=== PATIENT | female | born 1980 | race Caucasian/White ===

== ENCOUNTER 2017-02-06 04:31 | Emergency (ER) | payer SELFPAY ==
--- NOTE | 2017-02-06 04:48 | EDM.PDOC ---
ED HPI GENERAL MEDICAL PROBLEM - General Chief Complaint: Drug or Alcohol Abuse Stated Complaint: [facility] Time Seen by Provider: 02/06/17 04:36 Source of Information: Reports: Patient, EMS History Limitations: Reports: No Limitations - History of Present Illness INITIAL COMMENTS - FREE TEXT/NARRATIVE: The patient was brought in by EMS for a heroin overdose. She was at the [employer] [place] from [facility]. She injected some heroin and she stopped breathing. Her boyfriend put her in a cold shower. Police gave her 4mg of intranasal narcan and EMS started an IV and gave her 2mg of IV narcan. She is alert and breathing now. 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 She is not from around here and she was not aware that there was some bad heroin in town. She denies headache, chest pain, shortness of breath, abdominal pain, nausea or vomiting. She is very cold. Onset: Sudden Duration: Minutes: Severity: Moderate Improves with: Reports: None Worsens with: Reports: None Context: Reports: Activity (Injected heroin) Associated Symptoms: Reports: No Other Symptoms - Related Data Allergies Allergy/AdvReac Type Severity Reaction Status Date / Time No Known Allergies Allergy Verified 02/06/17 04:38 Home Meds: Home Meds . [No Known Home Meds] 02/06/17 [History] Past Medical History - Past Health History Medical/Surgical History: Denies Medical/Surgical History ED ROS GENERAL - Review of Systems Review Of Systems: See Below Constitutional: Reports: No Symptoms HEENT: Reports: No Symptoms Respiratory: Reports: No Symptoms Cardiovascular: Reports: No Symptoms Endocrine: Reports: No Symptoms GI/Abdominal: Reports: No Symptoms : Reports: No Symptoms Musculoskeletal: Reports: No Symptoms - Physical Exam Exam: See Below Exam Limited By: No Limitations General Appearance: Alert, No Apparent Distress Ears: Normal External Exam Nose: Normal Inspection Head Exam: Atraumatic, Normocephalic Neck: Normal Inspection Respiratory/Chest: No Respiratory Distress, Lungs Clear, Normal Breath Sounds Cardiovascular: Regular Rate, Rhythm, No Edema, No Murmur GI/Abdominal: Soft, Non-Tender, No Organomegaly, No Mass Neuro Exam (Abbreviated): Alert, Oriented, No Motor/Sensory Deficits Course - Vital Signs Last Recorded V/S: Last Vital Signs Temp Pulse 98 02/06/17 06:00 Resp 17 02/06/17 06:00 BP 134/90 02/06/17 06:00 Pulse Ox 97 02/06/17 06:00 - Re-Assessments/Exams Free Text/Narrative Re-Assessment/Exam: 02/06/17 04:48 The patient has an IV. I will monitor for 3 to 4 hours. 02/06/17 06:55 She is doing good. I will discharge her home shortly. Departure - Departure Time of Disposition: 07:00 Disposition: Home, Self-Care 01 Condition: Good Clinical Impression: Heroin overdose Qualifiers: Encounter type: initial encounter Injury intent: accidental or unintentional Qualified Code(s): T40.1X1A - Poisoning by heroin, accidental (unintentional), initial encounter - Discharge Information Referrals: Katina France PA [Physician Blending Supervisor] - 1 Week Additional Instructions: Do not do heroin. You almost this morning. If you need help stopping, please call [facility] at . Please return if you are worse.
== END 2017-02-06 08:30 | disposition home or self-care (01) ==
LOC: JD.ED 04:31
DX: T40.1X1A Poisoning by heroin, accidental (unintentional), initial encounter (principal)
CPT/HCPCS: 99284; 99285